=== PATIENT | male | born 1970 | race African-American/Black ===

== ENCOUNTER 2017-03-12 19:42 | Emergency (ER) | payer OTHER ==
[2017-03-12 19:53] VITALS: BP 135/93; PULSE 85; TEMP 98.1; BMI 29.5
--- NOTE | 2017-03-12 21:26 | PDOC ---
History of Present Illness - General Chief Complaint: Eye Problem Stated Complaint: EYE PROBLEM Time Seen by Provider: 03/12/17 21:14 History Source: Patient Exam Limitations: No Limitations - History of Present Illness Initial Comments: 03/12/17 21:44 46 yr male with left eye red, tearing after removing a contact last ight that was stuck in eye. Past History - Past Medical History Allergies/Adverse Reactions: Allergies Allergy/AdvReac Type Severity Reaction Status Date / Time No Known Allergies Allergy Verified 03/12/17 19:50 Home Medications: Ambulatory Orders Diazepam [Valium -] 5 mg PO BID #14 tablet 10/12/15 Naproxen [Naprosyn -] 500 mg PO BID #20 tablet 10/12/15 Tobramycin 0.3% Ophth Soln [Tobrex Ophthalmic Solution -] 2 drop OS Q4HWA #1 bottle 03/12/17 Other medical history: Pt denies - Psycho/Social/Smoking Cessation Hx Anxiety: No Suicidal Ideation: No Smoking History: Never smoked Information on smoking cessation initiated: No Hx Alcohol Use: No Drug/Substance Use Hx: No Substance Use Type: None Review of Systems - Review of Systems Able to Perform ROS?: Yes Is the patient limited Croatian proficient: No Constitutional: No: Symptoms Reported HEENTM: Yes: See HPI *Physical Exam - Vital Signs Last Vital Signs Temp Pulse Resp BP Pulse Ox 98.1 F 85 20 135/93 97 03/12/17 19:50 03/12/17 19:50 03/12/17 19:50 03/12/17 19:50 03/12/17 19:50 - Physical Exam General Appearance: Yes: Nourished, Appropriately Dressed HEENT: positive: EOMI, MALIKA, Pharynx Normal, Other (left eye conjunctival erythema, tearing ) Neck: positive: Supple. 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 pt states he can see his eye doctor tomorrow, I have also given 's information as well pt has been given a note for no work tomorrow pt will use the eye drops as prescribed all questions asked and answered 03/12/17 21:46 *DC/Admit/Observation/Transfer Diagnosis at time of Disposition: Corneal abrasion, left Qualifiers: Encounter type: initial encounter Qualified Code(s): S05.02XA - Injury of conjunctiva and corneal abrasion without foreign body, left eye, initial encounter - Discharge Dispostion Disposition: HOME Condition at time of disposition: Good - Prescriptions Prescriptions: Tobramycin 0.3% Ophth Soln [Tobrex Ophthalmic Solution -] 2 drop OS Q4HWA #1 bottle - Referrals Referrals: Julien Valente [Staff Physician] - - Patient Instructions Additional Instructions: use the eye drops as prescribed for 5-7 days no contact lenses follow with the eye doctor in 24hrs for a repeat exam, this is very improtant call Dr. Valente at [phone] if you are unable to see your doctor - Post Discharge Activity Work/School Note: Back to Work
== END 2017-03-12 22:05 | disposition home or self-care (01) ==
LOC: JERFT 19:42
DX: H18.822 Corneal disorder due to contact lens, left eye (principal)
CPT/HCPCS: 99281-25

== ENCOUNTER 2021-07-09 19:26 | Emergency (ER) | payer BC, OTHER ==
[2021-07-09 19:33] VITALS: BP 131/83; PULSE 86; BMI 31.7
== END 2021-07-09 21:00 | disposition home or self-care (01) ==
LOC: JER 19:26 → JERFT 19:26 → JER 21:00
DX: J06.9 Acute upper respiratory infection, unspecified (principal); R05.9 Cough, unspecified; R09.81 Nasal congestion; J20.9 Acute bronchitis, unspecified
CPT/HCPCS: 71046-TC-FY; 99284-25

== ENCOUNTER 2021-09-13 11:57 | Emergency (ER) | payer BC ==
[2021-09-13 12:25] VITALS: BP 140/85; PULSE 92; TEMP 97.8; BMI 31.7
[2021-09-13] MEDS ORDERED: DEXAMETHASONE LIQUID 0.5 MG/5 ML PO ONE (13:29)
[2021-09-13] MEDS ORDERED: ACETAMINOPHEN 325 MG TABLET (FP) PO ONE (13:29)
[2021-09-13] MEDS ORDERED: ACETAMINOPHEN 325 MG TABLET (FP) ONE (13:38)
[2021-09-13] MEDS ORDERED: DEXAMETHASONE SOD PHOSPHATE 10 MG/1 ML VIAL ONE (13:38)
[2021-09-13] MEDS: ALBUTEROL SO4 2.5/IPRATROPIUM 0.5 INH SOL 3 ML VIAL.NEB. NEB SCH ×2 (13:40→13:51)
== END 2021-09-13 15:59 ==
LOC: JER 11:57
PROC: 3E0F7GC Introduction of Other Therapeutic Substance into Respiratory Tract, Via Natural or Artificial Opening (ICD-10-PCS; principal; 2021-09-13)
DX: J45.21 Mild intermittent asthma with (acute) exacerbation (principal)
CPT/HCPCS: 71046-TC-FY; 93005; 93010; 99284-25; C9803; U0003; U0005

== ENCOUNTER 2022-03-02 01:43 | Emergency (ER) | payer BC ==
[2022-03-02 02:23] VITALS: TEMP 97.8; BMI 31.7
[2022-03-02 04:44] LABS: BASO % 1.1 % (0-2.0); EOS % 1.7 % (0-4.5); HEMATOCRIT 41.4 % (35.4-49); HEMOGLOBIN 14.6 GM/dL (11.7-16.9); LYMPH % 31.7 % (8-40); MCH 30.7 pg (25.7-33.7); MCHC 35.2 g/dl (32.0-35.9); MEAN CELL VOLUME 87.3 fl (80-96); MEAN PLT VOLUME 8.1 fl (7.5-11.1); MONO % 8.7 % (3.8-10.2); NEUT % 56.8 % (42.8-82.8); PLATELET COUNT 259 10^3/uL (134-434); RBC 4.74 M/mm3 (4.00-5.60); RDW 13.3 % (11.9-15.9); WHITE BLOOD COUNT 9.3 K/mm3 (4.0-10.0)
[2022-03-02 05:05] LABS: ALBUMIN 3.9 g/dl (3.4-5.0); CALCIUM 9.6 mg/dL (8.5-10.1)
[2022-03-02 05:06] LABS: BLOOD UREA NITROGEN 12.3 mg/dL (7-18)
[2022-03-02 05:09] LABS: CREATININE 0.9 mg/dL (0.55-1.3)
[2022-03-02 05:10] LABS: BILIRUBIN,TOTAL 0.4 mg/dL (0.2-1); TOT PROT 7.7 g/dl (6.4-8.2)
[2022-03-02 07:46] LABS: N-TERMINAL BNP 21.5 pg/ml (5-125)
[2022-03-02 08:32] VITALS: BP 129/80; PULSE 78
== END 2022-03-02 08:33 | disposition home or self-care (01) ==
LOC: JER 01:43
DX: R42 Dizziness and giddiness (principal)
CPT/HCPCS: 36415; 71046-TC-FY; 80053; 83880; 84484; 85025; 93005; 93010; 99285-25

== ENCOUNTER 2022-10-04 01:09 | Emergency (ER) | payer BC ==
[2022-10-04 01:20] VITALS: BP 134/75; PULSE 85; RESP 17; TEMP 98.8; BMI 31.0
[2022-10-04 03:18] LABS: EPI CELLS 1 /uL (0-25.1); HYALINE CASTS 0 /uL (0-3.1); URINE APPEARANCE CLEAR; URINE BILIRUBIN NEGATIVE (NEGATIVE); URINE COLOR DK YELLOW; URINE GLUCOSE (UA) NEGATIVE (NEGATIVE); URINE KETONE NEGATIVE (NEGATIVE); URINE LEUK ESTERASE NEGATIVE (NEGATIVE); URINE NITRITE POSITIVE (NEGATIVE); URINE PROTEIN NEGATIVE (NEGATIVE); URINE RBC 2 /uL (0-23.9); URINE WBC 3 /uL (0-25.8)
[2022-10-04] MEDS ORDERED: SULFAMETHOXAZOLE/TRIMETHOPRIM 800MG/160MG D.S. TABLET PO ONE (03:41)
[2022-10-04] MEDS ORDERED: SULFAMETHOXAZOLE/TRIMETHOPRIM 800MG/160MG D.S. TABLET ONE (03:51)
== END 2022-10-04 03:57 | disposition home or self-care (01) ==
LOC: JER 01:09
DX: N30.90 Cystitis, unspecified without hematuria (principal)
CPT/HCPCS: 81003; 87086; 99283-25

== ENCOUNTER 2023-02-18 12:43 | Emergency (ER) | payer BC ==
[2023-02-18 13:01] VITALS: BP 135/79; PULSE 108; RESP 18; TEMP 97.6; BMI 31.0
[2023-02-18] MEDS ORDERED: POLYETHYLENE GLYCOL (HEALTHYLAX) 3350 17 GM PACKET PO SCH (15:30)
[2023-02-18] MEDS ORDERED: POLYETHYLENE GLYCOL (HEALTHYLAX) 3350 17 GM PACKET PO ONE (15:30)
[2023-02-18] MEDS ORDERED: POLYETHYLENE GLYCOL (HEALTHYLAX) 3350 17 GM PACKET ONE (15:41)
== END 2023-02-18 15:50 | disposition home or self-care (01) ==
LOC: JER 12:43
DX: K59.09 Other constipation (principal); M54.50 Low back pain, unspecified; R10.9 Unspecified abdominal pain; K14.8 Other diseases of tongue
CPT/HCPCS: 74018-TC-FY; 99283-25